=== PATIENT | female | born 1940 | race Hispanic/Latino ===

== ENCOUNTER 2016-03-12 07:56 | Outpatient (CLI) | payer OTHER ==
--- NOTE | 2016-03-12 15:03 | Mammography Report ---
BILATERAL DIGITAL SCREENING MAMMOGRAM with CAD : 03/12/16 07:56:00 CLINICAL: Routine screening. COMPARISON:08/16/12 FINDINGS: The breasts are heterogeneously dense, which may obscure small masses. No mass, architectural distortion or suspicious calcifications. IMPRESSION: No mammographic evidence of malignancy. BI-RADS CATEGORY: 2 -- Benign RECOMMENDATION: Routine mammographic screening in one year. COMMENT: Patient follow-up letters are generated by our [employer] application.
== END 2016-03-12 07:57 | disposition home or self-care (01) ==
LOC: SPVWC 07:56
DX: Z12.31 Encounter for screening mammogram for malignant neoplasm of breast (principal)
CPT/HCPCS: 77067; G0202

== ENCOUNTER 2017-01-28 08:59 | Outpatient (CLI) | payer OTHER ==
--- NOTE | 2017-01-28 10:48 | XRay Report ---
THORACIC SPINE, 2 VIEWS: HISTORY: back pain. Mild osteopenia is suspected. Mild degenerative disc disease is noted no lower thoracic spine. There is no evidence for compression deformity, bone lesion or malalignment. The posterior ribs are grossly intact. IMPRESSION: Mild osteopenia. Mild thoracic spondylosis. No acute process noted.
== END 2017-01-28 09:00 | disposition home or self-care (01) ==
LOC: SPVIMAG 08:59
DX: M47.894 Other spondylosis, thoracic region (principal); M51.34 Other intervertebral disc degeneration, thoracic region; M85.88 Other specified disorders of bone density and structure, other site
CPT/HCPCS: 72072

== ENCOUNTER 2017-03-14 08:10 | Outpatient (CLI) | payer OTHER ==
--- NOTE | 2017-03-14 15:31 | Mammography Report ---
BILATERAL DIGITAL SCREENING MAMMOGRAM with CAD : 03/14/17 08:10:00 CLINICAL: Routine screening. COMPARISON: FINDINGS: The breasts are heterogeneously dense, which may obscure small masses. No mass, architectural distortion or suspicious calcifications. IMPRESSION: No mammographic evidence of malignancy. BI-RADS CATEGORY: 2 -- Benign RECOMMENDATION: Routine mammographic screening in one year. COMMENT: Patient follow-up letters are generated by our [employer] application.
== END 2017-03-14 08:11 | disposition home or self-care (01) ==
LOC: SPVWC 08:10
DX: Z12.31 Encounter for screening mammogram for malignant neoplasm of breast (principal)
CPT/HCPCS: 77067